=== PATIENT | female | born 1985 | race Caucasian/White ===

== ENCOUNTER 2018-07-22 19:50 | Emergency (ER) | payer BC ==
[2018-07-22] MEDS ORDERED: CIPROFLOXACIN-HC OTIC SUSP 10 ML AS ONE (21:37)
[2018-07-22] MEDS ORDERED: IBUPROFEN 600 MG TABLET PO ONE (22:37)
--- NOTE | 2018-07-22 22:39 | ER Document Report ---
ED General - General Chief Complaint: Ear Pain Stated Complaint: EAR PAIN Time Seen by Provider: 07/22/18 21:37 Mode of Arrival: Ambulatory Information source: Patient Notes: 32-year-old female with no medical problems who presents to the emergency room with a left ear pain on and off for the past 2 weeks. Patient denies fever. She states that she was cleaning it out with peroxide and there was some discharge. TRAVEL OUTSIDE OF THE [place] IN LAST 30 DAYS: No - HPI Onset: Other - Last month Onset/Duration: Gradual Quality of pain: Dull Severity: Moderate Pain Level: 2 Associated symptoms: denies: Chest pain, Fever, Shortness of breath Exacerbated by: Denies Relieved by: Denies Similar symptoms previously: No Recently seen / treated by doctor: No - Related Data Allergies/Adverse Reactions: amoxicillin Allergy (Verified 07/22/18 22:15) Past Medical History - General Information source: Patient - Social History Smoking Status: Never Smoker Cigarette use (# per day): No Chew tobacco use (# tins/day): No Frequency of alcohol use: None Drug Abuse: None Lives with: Spouse/Significant other Family History: None Patient has suicidal ideation: No Patient has homicidal ideation: No - Medical History Medical History: Negative Renal/ Medical History: Denies: Hx Peritoneal Dialysis Surgical Hx: Negative Review of Systems - Review of Systems Constitutional: denies: Chills, Fever EENT: See HPI Cardiovascular: No symptoms reported Respiratory: No symptoms reported Gastrointestinal: No symptoms reported Genitourinary: No symptoms reported Female Genitourinary: No symptoms reported Musculoskeletal: No symptoms reported Skin: No symptoms reported Hematologic/Lymphatic: No symptoms reported Neurological/Psychological: No symptoms reported Physical Exam - Vital signs Notes: Physical exam: GENERAL: Patient is alert and oriented x3, no acute distress, she is complaining of left ear pain HEAD: Atraumatic, normocephalic. EYES: Pupils equal round and reactive to light, extraocular movements intact, sclera anicteric, conjunctiva are normal. ENT: Right TM is clear in the right canal is clear. Left TM is cloudy and the canal is erythematous with pus. There is no mastoid erythema or neck mastoid tenderness. NECK: Normal range of motion, supple without obvious mass NEUROLOGICAL: Cranial nerves II through XII grossly intact. Normal speech, moving all extremities. PSYCH: Normal mood, normal affect. SKIN: Warm, Dry, normal turgor, no rashes or lesions noted. Course - Re-evaluation Re-evalutation: 07/22/18 23:05 Patient given Ciprodex in the ER. Discharge - Discharge Clinical Impression: Left otitis externa, Left otitis media Condition: Stable Disposition: HOME, SELF-CARE Additional Instructions: Continue with the Ciprodex eardrops: 1 drop 4 times daily Take the azithromycin as prescribed. Return to the ER for worsening pain in the ER. Ibuprofen for pain: 400 mg every 6 hours Prescriptions: Azithromycin [Zithromax 250 mg Tablet] 250 mg PO ASDIR PRN #6 tablet PRN Reason:
[2018-07-23 00:46] VITALS: BP 122/85
== END 2018-07-22 23:04 | disposition home or self-care (01) ==
LOC: ER 19:50
DX: H66.92 Otitis media, unspecified, left ear (principal); H60.92 Unspecified otitis externa, left ear; H92.02 Otalgia, left ear; Z88.0 Allergy status to penicillin
CPT/HCPCS: 99282; J3490

== ENCOUNTER 2019-03-26 13:49 | Emergency (ER) | payer SELFPAY ==
[2019-03-26 14:20] VITALS: BP 139/81
[2019-03-26] MEDS ORDERED: ACETAMINOPHEN 325 MG TABLET PO ONE (15:16)
[2019-03-26] MEDS ORDERED: DOXYCYCLINE HYCLATE 100 MG TABLET PO ONE (15:16)
--- NOTE | 2019-03-26 15:25 | ER Document Report ---
HPI - HPI Patient complains to provider of: sinus pressure Time Seen by Provider: 03/26/19 15:15 Pain Level: 3 Context: Patient is a 33-year-old female presents to the emergency department for generalized cough, congestion, subjective fevers for the last 3 weeks. Patient states in the last 3 days she has noticed increased sinus pressure. States she feels as though she has a generalized headache states she is using [id number] Mucinex and DayQuil. States she has not used any nasal sprays for same. Patient is denying any chest pain, shortness of breath, nausea, vomiting, diarrhea. Past medical history PCOS Medications: None Allergies: Penicillin - CONSTITUTIONAL Constitutional: REPORTS: Chills. DENIES: Fever - EENT EENT: REPORTS: Sore Throat - in the beginnin, Ear Pain. DENIES: Eye problems - NEURO Neurology: REPORTS: Headache - sinus. DENIES: Weakness, Vision blurred, Dizzinesss / Vertigo - CARDIOVASCULAR Cardiovascular: DENIES: Chest pain - RESPIRATORY Respiratory: REPORTS: Coughing. DENIES: Trouble Breathing - GASTROINTESTINAL Gastrointestinal: DENIES: Abdominal Pain, Black / Bloody Stools - URINARY Urinary: DENIES: Dysuria, Urgency, Frequency - REPRODUCTIVE Reproductive: DENIES: : - MUSCULOSKELETAL Musculoskeletal: DENIES: Extremity pain Past Medical History - General Information source: Patient - Social History Smoking Status: Current Every Day Smoker Chew tobacco use (# tins/day): No Frequency of alcohol use: Social Drug Abuse: None Family History: None Patient has suicidal ideation: No Patient has homicidal ideation: No Renal/ Medical History: Denies: Hx Peritoneal Dialysis Past Surgical History: Reports: Hx Section - x 2 Vertical Provider Document - CONSTITUTIONAL Agree With Documented VS: Yes Notes: GENERAL: Alert, interacts well. No acute distress. HEAD: Normocephalic, atraumatic. No frontal sinus tenderness, bilateral ma xillary sinus tenderness noted. EYES: Pupils equal, round, and reactive to light. Extraocular movements intact. ENT: Oral mucosa moist, tongue midline. Nares patent, swollen turbinates noted bilaterally, TM's intact, nonerythematous, nonbulging bilaterally. Pharynx minorly erythematous no palatal petechiae or exudate noted tonsils +1 bilaterally. NECK: Full range of motion. Supple. Trachea midline. No lymphadenopathy appreciated LUNGS: Clear to auscultation bilaterally, no wheezes, rales, or rhonchi. No respiratory distress. HEART: Regular rate and rhythm. No murmur ABDOMEN: Soft, non-tender. Non-distended. Bowel sounds present in all 4 quadrants. EXTREMITIES: Moves all 4 extremities spontaneously. No edema, normal radial and dorsalis pedis pulses bilaterally. No cyanosis. BACK: no cervical, thoracic, lumbar midline tenderness. No saddle anesthesia, normal distal neurovascular exam. NEUROLOGICAL: Alert and oriented x3. Normal speech. cranial nerves II through XII grossly intact PSYCH: Normal affect, normal mood. SKIN: Warm, dry, normal turgor. No rashes or lesions noted. - INFECTION CONTROL TRAVEL OUTSIDE OF THE [place] IN LAST 30 DAYS: No Course - Re-evaluation Re-evalutation: 03/26/19 15:23 Based on patient's URI symptoms for 3 weeks, now with maxillary sinus tenderness upon palpation and generalized headache I will treat for sinusitis. Discussed continued use of yged-yzi-pduzajk cold medications and added Nasonex or Flonase. Discussed staying well-hydrated and following up with primary care provider. Patient stable for discharge. - Vital Signs Vital signs: Temp Pulse Resp BP Pulse Ox 98.3 F 85 18 139/81 H 95 03/26/19 14:19 03/26/19 14:19 03/26/19 14:19 03/26/19 14:19 03/26/19 14:19 Discharge - Discharge Clinical Impression: Sinusitis Qualifiers: Sinusitis location: maxillary Chronicity: acute Recurrence: non-recurrent Qualified Code(s): J01.00 - Acute maxillary sinusitis, unspecified Condition: Stable Disposition: HOME, SELF-CARE Instructions: Sinusitis ([facility]) Additional Instructions: As we discussed you have been seen and treated in the emergency department for sinusitis. This is a bacterial infection of your sinuses. Please make sure you continue to take soqx-eoz-[id number] Mucinex, DayQuil, NyQuil as needed. Please also add the regimen of antibiotics and nasal sprays. Please follow-up with your primary care provider in the next 24 to 48 hours and stay well-hydrated. Please return to the emergency room for any other concerns. Prescriptions: Doxycycline Hyclate 100 mg PO BID #14 capsule Mometasone Furoate [Nasonex] 1 spray NS Q12 #1 spray.pump Forms: Return to Work
== END 2019-03-26 15:35 | disposition home or self-care (01) ==
LOC: ER 13:49
DX: J01.00 Acute maxillary sinusitis, unspecified (principal); R05 Cough; H92.09 Otalgia, unspecified ear; R51 Headache; F17.200 Nicotine dependence, unspecified, uncomplicated; Z88.0 Allergy status to penicillin
CPT/HCPCS: 99283

== ENCOUNTER 2019-06-25 11:00 | Emergency (ER) | payer SELFPAY ==
[2019-06-25 11:07] VITALS: BP 138/86
[2019-06-25] MEDS ORDERED: NEOMY SULF/POLYMYX B SULF/HC OTIC SUSP 10 ML AD ONE (11:37)
--- NOTE | 2019-06-25 11:43 | ER Document Report ---
HPI - HPI Patient complains to provider of: Right ear pain Time Seen by Provider: 06/25/19 11:28 Onset: Other - 5 days Onset/Duration: Persistent Quality of pain: Achy, Fullness Severity: Severe Pain Level: 4 Context: 33-year-old female presents the emergency department with complaints of right ear pain for the past 4 to 5 days. Reports she went swimming last week. Denies fever vomiting diarrhea. Eyes trauma. Reports she had a left-sided ear infection a couple weeks ago. She reports her ears eyes feel full she is always using Q-tips. She reports the pain is on her entire right side of her head. Associated Symptoms: None Exacerbated by: Denies Relieved by: Denies Similar symptoms previously: No Recently seen / treated by doctor: No - REPRODUCTIVE Reproductive: DENIES: : Past Medical History - General Information source: Patient Last Menstrual Period: 2 weeks ago - Social History Smoking Status: Current Every Day Smoker Cigarette use (# per day): Yes Frequency of alcohol use: None Drug Abuse: None Family History: None Patient has suicidal ideation: No Patient has homicidal ideation: No Renal/ Medical History: Reports: Other - PCOS. Denies: Hx Peritoneal Dialysis Past Surgical History: Reports: Hx Section - x 2 Vertical Provider Document - CONSTITUTIONAL Agree With Documented VS: Yes Exam Limitations: No Limitations General Appearance: WD/WN, No Apparent Distress - INFECTION CONTROL TRAVEL OUTSIDE OF THE [place] IN LAST 30 DAYS: No - HEENT HEENT: Atraumatic, Normocephalic, Tympanic Membrane Red - Right EAC swollen no drainage. negative: Conjuctival Injection, Pharyngeal Erythema - NECK Neck: Normal Inspection, Supple. negative: Lymphadenopathy-Left, Lymphadenopathy-Right - RESPIRATORY Respiratory: Breath Sounds Normal, No Respiratory Distress - CARDIOVASCULAR Cardiovascular: Regular Rate - MUSCULOSKELETAL/EXTREMETIES Musculoskeletal/Extremeties: ANNIKAEW, FROM - NEURO Level of Consciousness: Awake, Alert, Appropriate Motor/Sensory: No Motor Deficit - DERM Integumentary: Warm, Dry Course - Re-evaluation Re-evalutation: 06/25/19 11:47 43-year-old female with right-sided ear pain for the past 4 to 5 days. Patient has been using some dzog-nqk-oybxthi drops without relief of symptoms. TM with erythema EAC is slightly swollen no discharge noted. We will treat for otitis media and externa. Patient was instructed on no swimming. Patient was also instructed on importance of follow-up with primary care provider or ENT if she continues to have issues with her ears. She verbalized understand all instructions Dictation of this chart was performed using voice recognition software; therefore, there may be some unintended grammatical errors. - Vital Signs Vital signs: Temp Pulse Resp BP Pulse Ox 98.2 F 81 18 138/86 H 97 06/25/19 11:06 06/25/19 11:06 06/25/19 11:06 06/25/19 11:06 06/25/19 11:06 Discharge - Discharge Clinical Impression: Right otitis externa Qualifiers: Otitis externa type: unspecified type Chronicity: acute Qualified Code(s): H60.501 - Unspecified acute noninfective otitis externa, right ear Right otitis media Qualifiers: Otitis media type: unspecified Qualified Code(s): H66.91 - Otitis media, unspecified, right ear Condition: Stable Disposition: HOME, SELF-CARE Instructions: Azithromycin ([facility]), Use of Ear Drops ([facility]), Use of Qwhs-Jvv-Fzldocx Ibuprofen ([facility]), Otitis Externa ([facility]), Otitis Media ([facility]) Additional Instructions: *You have been evaluated for ear pain, otitis externa and otitis media *Use ear drops as prescribed- 4 drops right ear three times a day for 5 days *Take medication as prescribed *Take ibuprofen as indicated for pain No swimming *Follow up with a primary care provider within 1 week for recheck *Return to ED for worsening condition, changes, needs Monitor your blood pressure. Your blood pressure was elevated today. This may be because you were anxious, in pain or because you need medication. It is important to follow up with your primary care provider for full evaluation. Prescriptions: Azithromycin [Zithromax 250 mg Tablet] 250 mg PO ASDIR PRN #6 tablet PRN Reason: Forms: Elevated Blood Pressure, Smoking Cessation Education
== END 2019-06-25 11:53 | disposition home or self-care (01) ==
LOC: ER 11:00
DX: H60.501 Unspecified acute noninfective otitis externa, right ear (principal); H66.91 Otitis media, unspecified, right ear; H92.01 Otalgia, right ear; F17.210 Nicotine dependence, cigarettes, uncomplicated
CPT/HCPCS: 99282; J3490